=== PATIENT | male | born 1980 | race Caucasian/White ===

== ENCOUNTER 2018-10-02 14:18 | Outpatient (CLI) | payer OTHER ==
--- NOTE | 2018-10-02 15:28 | Diagnostic Imaging Report ---
TAYLOR BAL [facility] [id number] [id number] Report Submission Date: Oct 02, 2018 3:20:37 PM [employer]EL [employer] Patient Study Name: GARY BAKER Date: Oct 02, 2018 2:50:05 PM [employer]EL [employer]ER Modality Type: DX Gender: M Description: ANKLE 3 VIEWS OR MORE : 76 Institution: [facility] Physician: TAYLOR BAL Examination: Plain film right ankle History: PAIN IN ANKLE AFTER FALL YESTERDAY, PT STATES MOST PAIN IN POSTERIOR ANKLE Findings: 3 views of the right ankle demonstrates normal cortical margins. No fracture or dislocation. Talar dome is intact. Inferior calcaneal spur. Lateral soft tissue swelling. No joint effusion. Impression: Lateral soft tissue swelling. No acute appearing cortical abnormality. Electronically signed on Oct 02, 2018 3:20:37 PM [employer]UEL ASSEM[employer]ER by: Saeid MAN
== END 2018-10-02 14:20 ==
LOC: RAD 14:18
PROVIDERS: ATTEND Nurse Practitioner Family
DX: S99.911A Unspecified injury of right ankle, initial encounter (principal); X58.XXXA Exposure to other specified factors, initial encounter
CPT/HCPCS: 73610